=== PATIENT | male | born 1985 | race African-American/Black ===

== ENCOUNTER 2016-09-24 10:13 | Emergency (ER) | payer OTHER ==
[~2016-09-24] VITALS: Ht 177.8 cm; Wt 82.0 kg
[2016-09-24 10:27] VITALS: BP 116/70
[2016-09-24 11:44] LABS: ASPARTATE AMINO TRANSFERASE 16 U/L (15-37); BLOOD UREA NITROGEN 17 mg/dL (7-18)
== END 2016-09-24 12:22 | disposition home or self-care (01) ==
LOC: ED 12:20
DX: R10.13 Epigastric pain (principal)
CPT/HCPCS: 36415; 74020; 80053; 83690; 85025; 99285